=== PATIENT | male | born 1955 | race Caucasian/White ===

== ENCOUNTER 2016-03-15 03:09 | Inpatient (IN) ==
[2016-03-15] MEDS ORDERED: HYDROmorphone 2 MG/1 ML VIAL IV STA (05:30)
[2016-03-15] MEDS ORDERED: ONDANSETRON ODT 4 MG TABLET PO STA (05:31)
[2016-03-15] MEDS ORDERED: HYDROmorphone 2 MG/1 ML VIAL ONE (05:36)
[2016-03-15] MEDS ORDERED: ONDANSETRON ODT 4 MG TABLET PO ONE (05:36)
--- NOTE | 2016-03-15 05:46 | Emergency Department Note ---
IDomo Gwan, am scribing for, and in the presence of, Angel Aragon 05:07. IMargo Chad, personally performed the services described in this documentation, ascribed by Sarabjit Oliveros in my presence, and it is both accurate and complete [phone] . Arrival - Arrival Chief Complaint: Abdominal / Flank Pain Stated Complaint: N/V/D ED Nursing Triage Note: C/C transfer from [facility] ER for Colitis, N/V/D, inguinal hernia with bladder protruding through wall of hernia site. Pt was given Phenergan 50mg, Cipro 400mg, Decadron 10mg. Mode of Arrival: Stretcher Limitations: No Limitations Source: Patient, Old Records Reviewed, RN Notes Reviewed Time Seen by Provider: 03/15/16 03:39 - History of Present Illness HPI Narrative: Pt is a 60 y/o male, transferred from [facility] ER with a hx of hernia and mycoplasma , who presents to the ED who presents to the ED for further evaluation of Colitis, N/V/D and inguinal hernia protruding through wall of hernia site. Upon arrival, pt was given Phenergan 50 mg, Cipro 400mg and Decadron 10mg. His associated sxs have been V/D and night sweats. Patient stated that 03/09/2015 he called his PCP in [place] and informed him of his sxs, on 03/11/2015 he had an onset of diarrhea, today he reported to ED in [place] due to sxs worsening and he received a CT scan w/contrast and an x-ray. He was then prompted to report to ED. No other problems/complaints reported in ED. Onset (ago): week(s) Consistency: constant Severity: moderate Allergies/Adverse Reactions: Allergies Allergy/AdvReac Type Severity Reaction Status Date / Time No Known Allergies Allergy Unverified 03/15/16 03:27 Home Medications: Home Medications Medication Instructions Recorded Confirmed Type Atorvastatin [Lipitor] 20 mg PO DAILY 03/15/16 03/15/16 History HydrOXYzine PAMOATE CAP [Vistaril 25 mg PO DAILY 03/15/16 03/15/16 History Cap] PARoxetine [Paxil] 20 mg PO DAILY 03/15/16 03/15/16 History Review of System - Review of System 12 point system: reviewed and no additional remarkable complaints except as stated - Review of System Constitutional: Present: as per HPI, night sweats Gastrointestinal: Present: as per HPI, abdominal pain, nausea, vomiting, diarrhea Medical,Surgical,& Family Hx - Medical History Psychological: History of: Anxiety Disorders Endocrine: History of: Dyslipidemia - Social History Smoking Status: Never smoker Frequency of Alcohol Use: None Type of Drug Use: None Exam Vital Signs: Vital Signs Temperature 97.1 F L 03/15/16 03:09 Pulse Rate 74 03/15/16 03:09 Respiratory Rate 16 03/15/16 03:09 Blood Pressure 136/80 03/15/16 03:09 O2 Sat by Pulse Oximetry 94 L 03/15/16 03:09 - General General appearance: alert, in no apparent distress - Head Head exam: Present: atraumatic, normocephalic - Eye Eye exam: Present: normal appearance, PERRL, EOMI - ENT ENT exam: Present: normal oropharynx, mucous membranes moist, TM's normal bilaterally, normal external ear exam - Neck Neck exam: Present: full ROM. Absent: trachea midline, tenderness, meningismus , lymphadenopathy, thyromegaly - Chest Chest inspection: Present: symmetric chest wall rise. Absent: tenderness - Respiratory Respiratory exam: Present: normal lung sounds bilaterally. Absent: respiratory distress - Cardiovascular Cardiovascular exam: Present: regular rate, normal rhythm, normal heart sounds. Absent: murmur, rubs, gallop - Abdominal Exam Abdominal exam: Present: tenderness (mild right side ) - exam: Present: other (L inguinal hernia) - Extremities Exam Extremities exam: Present: full ROM. Absent: tenderness, pedal edema, calf tenderness - Back Exam Back exam: Present: full ROM. Absent: tenderness - Neurological Exam Neurological exam: Present: alert, oriented X3, CN II-XII intact. Absent: motor sensory deficit - Psychiatric Psychiatric exam: Present: normal affect, normal mood - Skin Skin exam: Present: warm, dry, intact, normal color Disposition Clinical Impression: Abdominal pain, Inguinal hernia Case discussed with: patient Disposition: Still a Patient Condition: Stable Instructions: Colitis (ED) Additional Instructions: discussed w dr ingram will admit to hospitalist service
[2016-03-15] MEDS ORDERED: ACETAMINOPHEN 325 MG TABLET PO PRN (06:13)
[2016-03-15] MEDS ORDERED: MORPHINE 2 MG/1 ML SYRINGE IV PRN (06:13)
[2016-03-15] MEDS ORDERED: ONDANSETRON 4 MG/2 ML VIAL IV PRN (06:13)
--- NOTE | 2016-03-15 06:18 | Hospitalist History & Physical ---
Assessment and Plan (1) Acute colitis Status: Acute Current Visit: Yes (2) Upper respiratory infection Status: Acute Current Visit: Yes (3) Diarrhea Status: Acute Current Visit: Yes (4) Left inguinal hernia Status: Acute Current Visit: Yes (5) Umbilical hernia Status: Acute Assessment and plan: Plan: 03/15: We'll admit for IV antibiotics, check blood cultures. We'll check stool for C. difficile as well given his recent antibiotic use followed by abdominal pain, watery diarrhea, and colitis on CT. We'll consult surgery for his inguinal hernia which has been bothering him and at some point he was supposed to see a surgeon. Otherwise supportive care for pain and nausea. Current Visit: Yes History of Present Illness Chief complaint: abdominal pain History of present illness: Mr. Mariscal is a 60 year old male with dyslipidemia who was transferred from an outside hospital with abdominal pain and CT consistent with colitis. He reports having upper respiratory infection and sinus primary doctor about a week ago and was started on oral antibiotics. On Wednesday he developed severe abdominal pain and watery diarrhea, of which she's had multiple episodes. He's had subjective fever and drenching sweats. His abdominal pain is mostly on the left side, radiates somewhat across the abdomen. He's had nausea and vomiting. He rates his pain 6 out of 10 at worst, relieved with pain medication. He also has an inguinal left hernia as well as an umbilical hernia. CT of the abdomen showed diffuse colitis. Home Medications Medication Instructions Recorded Confirmed Type Atorvastatin [Lipitor] 20 mg PO DAILY 03/15/16 03/15/16 History HydrOXYzine PAMOATE CAP [Vistaril 25 mg PO DAILY 03/15/16 03/15/16 History Cap] PARoxetine [Paxil] 20 mg PO DAILY 03/15/16 03/15/16 History Allergies Allergy/AdvReac Type Severity Reaction Status Date / Time No Known Allergies Allergy Unverified 03/15/16 03:27 Medical,Surgical,& Family Hx - Medical History Cardio: No history of: Hypertension Psychological: History of: Anxiety Disorders Endocrine: History of: Dyslipidemia No history of: Diabetes Mellitus (NIDDM) - Surgical History Abdominal Surgeries: Surgical HX of: Appendectomy - Family History Family History: noncontributory - Social History Smoking Status: Never smoker Frequency of Alcohol Use: None Type of Drug Use: None Marital Status: Unknown Functional capacity: independent ambulation Review of systems: A 12 point review of systems is negative except as specified in the HPI Exam - Constitutional Exam: EXAM: CONSTITUTIONAL: non toxic, NAD HEENT: NC, AT, OP benign, KARMA, EOMI CV: RRR no m/g/r RESP: clear B/L, no w/r/r GI: abd soft, left-sided abdominal tenderness, no rebound, + bowel sounds; reducible umbilical and left inguinal hernia INTEGUMENTARY: no lesions or rash EXTREMITIES: no c/c/e NEURO: no focal deficits PSYCH: unremarkable, A/O x3 Results - Labs Lab Results: I have reviewed the past 24 hour labs (outside labs reviewed) - Diagnostic Findings Procedure: CT Abdomen and Pelvis: image reviewed by me, report reviewed by me
[2016-03-15] MEDS ORDERED: CIPROFLOXACIN INJ 400 MG in PREMIX 1 EACH IV SCH (06:30)
[2016-03-15 07:20] LABS: Basophils # 0.1 10*3/uL (0.0-0.2); Basophils % 0.2 % (0.0-0.8); Hematocrit 51.1 VOL% (42.0-52.0); Hemoglobin 16.8 GM/DL (14.0-18.0); Immature Granulocytes Absolute 0.24 #; Lymphocytes # 2.4 10*3/uL (1.4-4.0); Lymphocytes % 9.5 % (21.2-54.2); Mean Corpuscular HGB Conc 32.9 GM/DL (32-36); Mean Corpuscular Hemoglobin 29 PG (27-34); Mean Corpuscular Volume 88.1 FL (87-102); Mean Platelet Volume 11.8 FL (9.6-12.0); Monocytes # 1.2 10*3/uL (0.11-0.8); Monocytes % 4.6 % (1.7-12.7); Neutrophils # 21.2 10*3/uL (1.4-7.4); Neutrophils % 84.7 % (38.7-73.9); Platelet Count 298 10*3/uL (130-400); Red Cell Distribution Width 12.9 % (9.3-17.3)
[2016-03-15 08:02] LABS: Bilirubin,Total 0.8 MG/DL (0.2-1.0); Calcium 8.6 MG/DL (8.5-10.1); Osmolality,Calculated 285.3 MOS/KG (273-304); Potassium 4.7 MMOL/L (3.5-5.1)
--- NOTE | 2016-03-15 08:13 | XRay Report ---
Exam: XR chest 1V portable Date: 03/15/2016 5:30 AM Indication: Cough Comparison: None Technical:AP semierect portable Findings: Cardiomegaly with tiny low-volume left effusion bibasal atelectatic change. Oxygen tubing is present. Mediastinum is unremarkable. Impression: 1. Cardiomegaly with tiny left base effusion atelectatic change PROCEDURE INTERPRETED AT [facility] DEPARTMENT OF RADIOLOGY Final Report Signed by: Dr. Mathew Zaragoza
[2016-03-15] MEDS: SODIUM CHLORIDE 0.9% 1,000 ML IV SCH ×2 (08:25→18:44)
[2016-03-15] MEDS: ATORVASTATIN 20 MG TABLET PO SCH (08:31)
[2016-03-15] MEDS: PANTOPRAZOLE 40 MG TABLET PO SCH (08:31)
[2016-03-15] MEDS: PARoxetine 20 MG TABLET PO SCH (08:31)
[2016-03-15] MEDS ORDERED: metroNIDAZOLE INJ 500 MG in PREMIX 1 EACH IV SCH (09:00)
[2016-03-15] MEDS: ENOXAPARIN 40 MG/0.4 ML SYRINGE SUBCUT SCH (09:45)
[2016-03-15 10:09] LABS: Band Neutrophils 2 % (0-10); Lymphocytes 10 % (20-55); Segmented Neutrophils 83 % (50-85); Total Cells Counted 100
[2016-03-15 10:10] LABS: Hypochromasia 1+; Platelet Estimate Adequate
--- NOTE | 2016-03-15 11:06 | Hospitalist Progress Note ---
Assessment and Plan (1) Acute colitis Status: Acute Assessment and plan: Stool for C. difficile 3. Stop Cipro and change to po flagyl, GI consulted Current Visit: Yes (2) Enlarged liver Status: Acute Assessment and plan: us of abdomen Current Visit: Yes (3) Left inguinal hernia Status: Acute Assessment and plan: Dr Archer consulted Current Visit: Yes Hospitalist: Subjective Interval history: Patient has already been seen by my partner but I have also seen him. My partner was concerned that he may be having C. difficile as he started having diarrhea after having a course of antibiotics. However when I saw him today he did the diarrhea had slowed up which C. difficile does not usually do. We will still check him for C. difficile but we will continue the IV antibiotics for colitis until seen by GI. Exam - Constitutional Vitals: Period Temp Pulse Resp BP Sys/Stewart Pulse Ox Last 24 Hr 98.5 F 85 17-18 137-139/91-93 90-93 Exam: Heart Rate-[RRR] Lungs-[CTAB] GI-[+bs soft, enlarged firm liver] Ext-[no edema] neuro motor 5/5, alert and oriented times 3 psych normal mood and affect general no acute distress Results - Labs CBC & BMP: 03/15/16 07:11 03/15/16 07:11 Lab Results: I have reviewed the past 24 hour labs - Diagnostic Findings Procedure: Chest x-ray: report reviewed by me (left effusion ) Specialty Discharge - Follow Up or Referrals
--- NOTE | 2016-03-15 11:12 | General Surgery Consult Note ---
History of Present Illness Chief complaint: consult for hernias History of present illness: Mr. Mariscal is a 60 year old male who was transferred from an outside facility with a diagnosis of colitis. His CT scan showed bilateral inguinal and umbilical hernias and I was consult did by Dr. Aragon in the emergency room. Patient has been admitted to the hospitalist service with a diagnosis of colitis. Possible C. difficile colitis. He says he's had hernias for quite some time. He says this time he would like to have them fixed. The hernias are not giving him any pain. He specifically denies pain in the groin and scrotum as well as the umbilicus. His pain is along the left abdomen and suprapubic area. He's recently been treated for upper respiratory symptoms with antibiotics. He began having diarrhea a few days ago. Apparently this has improved since admission. He says he feels much better today than he did yesterday. He does not appear toxic. I am unable to insert the assessment and plan in the appropriate tab and I will be placed here Impression: #1 pancolitis #2 asymptomatic umbilical and bilateral inguinal hernias Plan: Patient is on antibiotics and appears to have improved since admission. Hernias are asymptomatic at this time. I have reviewed the CT scan images and the outside report. No plans for repair of any hernia at this time due to his current infection. We can discuss this once the infection has resolved as an outpatient. We'll continue current antibiotics. GI has been consulted. Will follow. Home Medications Medication Instructions Recorded Confirmed Type Atorvastatin [Lipitor] 20 mg PO DAILY 03/15/16 03/15/16 History HydrOXYzine PAMOATE CAP [Vistaril 25 mg PO DAILY 03/15/16 03/15/16 History Cap] PARoxetine [Paxil] 20 mg PO DAILY 03/15/16 03/15/16 History Allergies Allergy/AdvReac Type Severity Reaction Status Date / Time No Known Allergies Allergy Unverified 03/15/16 03:27 Medical,Surgical,& Family Hx - Medical History Cardio: No history of: Hypertension Psychological: History of: Anxiety Disorders Endocrine: History of: Dyslipidemia No history of: Diabetes Mellitus (NIDDM) - Surgical History HEENT Surgeries: Surgical HX of: Tonsilectomy & Adenoidectomy (in 80s) Abdominal Surgeries: Surgical HX of: Appendectomy - Social History Smoking Status: Never smoker Frequency of Alcohol Use: None Type of Drug Use: None 12 point system: reviewed and no additional remarkable complaints except as stated Exam - Constitutional Vitals: Period Temp Pulse Resp BP Sys/Stewart Pulse Ox Last 24 Hr 98.5 F 85 17-18 137-139/91-93 90-93 General appearance: no acute distress - Head Head exam: Present: normocephalic - ENT Mouth exam: Present: normal external inspection - Neck Neck exam: Present: normal inspection - Respiratory Respiratory exam: Present: clear to auscultation bilaterally - Cardiovascular Cardiovascular exam: Present: RRR - GI/Abdominal GI/Abdominal exam: Present: soft (tender to palpation in the suprapubic and left lower quadrants. Umbilical hernia is easily reducible. He has bilateral inguinal hernias and the one on the left is larger than the right. The right one is reducible. The left one is partially reducible. He has no pain with manipulation of the hernias.) - Neurological Exam Neurological exam: Present: alert, oriented X3 Speech: Present: normal - Skin Skin exam: Present: normal color Results - Labs CBC & BMP: 03/15/16 07:11 03/15/16 07:11 Lab Results: I have reviewed the past 24 hour labs Specialty Discharge - Follow Up or Referrals
--- NOTE | 2016-03-15 11:58 | Ultrasound Report ---
Exam: US liver Date:03/15/2016 10:57 AM Indication: Enlarged firm liver hepatomegaly Comparison: CT scan [facility] 03/14/2016 Findings: Liver: Liver measures approximately 14.4 cm with right hepatic lobe with some mild Fastener Technologist margins. No focal masses are present. Hepatic and portal veins are patent with Gallbladder: Normal size shape configuration without stones. CBD: 5 mm Pancreas: Poorly visualized Kidneys Right kidney: 10.0 x 4.4 x 4.6 cm. There is no hydronephrosis perinephric fluid collection focal mass present. No obvious evidence of ascites present. Impression: 1. Mild enlargement right hepatic lobe with slight nodularity of the liver without focal mass Ultrasound images were stored and captured PROCEDURE INTERPRETED AT [facility] DEPARTMENT OF RADIOLOGY Final Report Signed by: Dr. Mathew Zaragoza
[2016-03-15] MEDS ORDERED: metroNIDAZOLE 500 MG TABLET PO SCH (15:00)
--- NOTE | 2016-03-15 17:41 | Gastrointestinal Consult Note ---
Assessment and Plan (1) C. difficile colitis Status: Acute Assessment and plan: Patient has a pancolitis, exposure to antibiotics, white blood cell count 25,000 , and a positive C. difficile by toxin check. Seems pretty classic for C. difficile colitis confirmed by the fact that he is doing much better on Flagyl this point. We need to bear in mind that he is 20% chance of recurrence of C. difficile, the next step would be to put him on a tapering dose i.e., Flagyl 3 times a day for week, twice a day for week, once a day per week and then once every other day for a week. If the patient fails Flagyl may consider using vancomycin for Dificid as alternatives. Continue Flagyl for at least 7-10 days. If his white count is improving tomorrow he might be also be discharged to home. Current Visit: Yes (2) Hepatomegaly Status: Acute Assessment and plan: Patient denies drinking significant amounts of alcohol. 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 His liver function tests are almost completely normal. I don't know if I would workup this slightly enlarged liver further. Current Visit: Yes (3) Referred left lower quadrant abdominal pain Status: Acute Assessment and plan: Pain is already improving, this will probably take over week or 2 to completely regress. Await the rest of the patient's stool studies to make sure there is no other pathogens noted. With use of Flagyl only at this point. Again the patient seems to be getting better on this medication. I'm going to advance him to a low-lactose diet tomorrow to see how he does with this. Current Visit: Yes History of Present Illness Chief complaint: C. difficile colitis History of present illness: Mr. Mariscal is a 60 year old male who has seen Dr. 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 He had been on antibiotics in the past for recent upper respiratory infection and has since been determined to be C. difficile positive. His white blood cell count is elevated at 25,000 and he states that he was having 10-15 bowel movements his first day 5 days ago but this is dropped down to about 2/day now that he has started on Flagyl. He has not noticed any bright red blood per rectum he does not have a history of colon cancer or polyps. The patient had had previous colonoscopy done by Dr. Chauhan on 09/04/13 for a history of blood in his stool, at that time he was noted to have some left-sided diverticulosis and internal hemorrhoids. His pain has dissipated to a large extent now, he feels no particular hunger unfortunately. Home Medications Medication Instructions Recorded Confirmed Type Atorvastatin [Lipitor] 20 mg PO DAILY 03/15/16 03/15/16 History HydrOXYzine PAMOATE CAP [Vistaril 25 mg PO DAILY 03/15/16 03/15/16 History Cap] PARoxetine [Paxil] 20 mg PO DAILY 03/15/16 03/15/16 History Allergies Allergy/AdvReac Type Severity Reaction Status Date / Time No Known Allergies Allergy Unverified 03/15/16 03:27 Medical,Surgical,& Family Hx - Medical History Cardio: No history of: Hypertension Psychological: History of: Anxiety Disorders Endocrine: History of: Dyslipidemia No history of: Diabetes Mellitus (NIDDM) - Surgical History HEENT Surgeries: Surgical HX of: Tonsilectomy & Adenoidectomy (in 80s) Abdominal Surgeries: Surgical HX of: Appendectomy - Social History Smoking Status: Never smoker Frequency of Alcohol Use: None Type of Drug Use: None Review of systems: Constitutional: Denies fever, chills, with history of recent nausea, and vomiting some 5 days ago Eyes: Denies dry eyes, and scleral icterus HENT: Denies headaches Cardiovascular: Denies acute chest pain and claudication Respiratory: Denies shortness of breath, wheezing, and difficulty breathing, denies cough Gastrointestinal: As noted in the HPI Genitourinary: Denies dysuria and hematuria Neurologic: Denies vision loss, and loss of sensation Musculoskeletal: Denies joint swelling, joint stiffness, and muscular weakness Psychiatric: Denies depression and cayetano symptoms Heme-Lymph: Denies easy bruising, lymph node enlargement or tenderness, night sweats, excessive bleeding Allergies-immunologic: Denies pruritus and rhinorrhea Exam - Constitutional Vitals: Period Temp Pulse Resp BP Sys/Stewart Pulse Ox Last 24 Hr 98.2 F-98.5 F 76-85 16-20 135-157/75-93 90-93 Exam: Constitutional: Well-developed, well-nourished, alert, and in no acute distress Head and face: Head: Normocephalic atraumatic Eyes: Conjunctiva without injection, no gross scleral icterus, pupils equal and round bilaterally Ears: Intact to conversation in both ears Nose: External appearance is normal, nares patent Mouth: Oral mucous membranes moist without erythema dentition noted to be without erosion Neck: Normal appearance, no masses or tenderness, trachea midline Thyroid: Gland midline and appropriate size for age Respiratory: Normal respiratory effort, clear to auscultation without wheezes, rhonchi or rales Cardiovascular: Regular rate and rhythm, normal S1, S2, the exam is without rubs, murmurs or gallops. Gastrointestinal: Tenderness to deep palpation in the left lower abdomen, normal active bowel sounds, tone normal without rigidity or guarding, no masses present, no hepatomegaly, no spleen tip felt. There is a periumbilical hernia noted here above the size of a half dollar, right inguinal hernia noted as well. No rectal exam obtained. Lymphatic: Neck without adenopathy, axilla without lymphadenopathy present Musculoskeletal: Right and left lower extremities without evidence of edema Skin and subcutaneous tissue: No rashes or ulcerations noted, normal skin turgor, digits and nails without clubbing/cyanosis/deformities. Neurologic: The patient is grossly oriented to person place and time, cranial nerves show tongue movements are normal with normal tongue extrusion midline, light touch sensation is intact. Psychiatric: No hallucinations or delusions are present, does not appear depressed Results - Labs CBC & BMP: 03/15/16 07:11 03/15/16 07:11 Specialty Discharge - Follow Up or Referrals
[2016-03-15] MEDS: VANCOMYCIN 50 MG/ML 60 ML/BOTTLE PO SCH ×2 (18:45→23:31)
[2016-03-15] MEDS: HydrOXYzine PAMOATE 25 MG CAPSULE PO SCH (20:04)
[2016-03-16] MEDS: SODIUM CHLORIDE 0.9% 1,000 ML IV SCH ×3 (02:33→18:30)
[2016-03-16] MEDS: VANCOMYCIN 50 MG/ML 60 ML/BOTTLE PO SCH ×4 (05:28→23:25)
[2016-03-16 06:09] LABS: Basophils % 0.2 % (0.0-0.8); Eosinophils # 0.1 10*3/uL (0.0-0.87); Eosinophils % 0.6 % (0.00-10.9); Hematocrit 46.7 VOL% (42.0-52.0); Hemoglobin 15.2 GM/DL (14.0-18.0); Immature Granulocytes % 0.8 %; Immature Granulocytes Absolute 0.18 #; Lymphocytes # 3.7 10*3/uL (1.4-4.0); Lymphocytes % 15.9 % (21.2-54.2); Mean Corpuscular HGB Conc 32.5 GM/DL (32-36); Mean Corpuscular Hemoglobin 28 PG (27-34); Mean Corpuscular Volume 86.6 FL (87-102); Monocytes # 1.9 10*3/uL (0.11-0.8); Monocytes % 8.1 % (1.7-12.7); Neutrophils # 17.2 10*3/uL (1.4-7.4); Neutrophils % 74.4 % (38.7-73.9); Platelet Count 301 10*3/uL (130-400); Red Blood Count 5.39 10*6/uL (3.8-5.5); Red Cell Distribution Width 13.2 % (9.3-17.3); White Blood Count 23.1 10*3/uL (4.5-13.71)
[2016-03-16 06:31] LABS: Band Neutrophils 4 % (0-10); Lymphocytes 13 % (20-55); Segmented Neutrophils 76 % (50-85); Total Cells Counted 100
[2016-03-16 06:32] LABS: Hypochromasia Slight
[2016-03-16 06:33] LABS: Microcytosis Slight; Platelet Estimate Normal
[2016-03-16 06:43] LABS: Albumin 2.6 G/DL (3.4-5.0); Bilirubin,Total 0.7 MG/DL (0.2-1.0); Calcium 8.3 MG/DL (8.5-10.1); Osmolality,Calculated 282.3 MOS/KG (273-304); Total Protein 5.8 G/DL (6.4-8.3)
[2016-03-16] MEDS: PANTOPRAZOLE 40 MG TABLET PO SCH (09:07)
[2016-03-16] MEDS: PARoxetine 20 MG TABLET PO SCH (09:07)
[2016-03-16] MEDS: ATORVASTATIN 20 MG TABLET PO SCH (09:07)
[2016-03-16] MEDS: ENOXAPARIN 40 MG/0.4 ML SYRINGE SUBCUT SCH (09:08)
--- NOTE | 2016-03-16 09:54 | Gastrointestinal Progress Note ---
Assessment and Plan (1) C. difficile colitis Status: Acute Assessment and plan: 03/16-Continued high diarrhea stool output, abd cramping. Afebrile. WBC trending down slightly at 23. Continue oral Vancomycin, consider adding Colestid. Plan and addendum to follow by Dr Chauhan. Current Visit: Yes Gastroenterology - PN: Subj Interval history: CC: C. diff Pt is seen asleep. Awakens easily to stimuli. States that he is feeling the same. He reports having continued large amount of stool with abdominal cramping. Denies any fever or chills. Denies any nausea or vomiting. He states he did see some blood streaks this morning in his stool which he hasnt had however he is going upwards of 10-15 times daily. Abdomen is soft, mild tenderness. WBC 23, down slightly. ROS: Denies SOB or chest pain Exam (Progress Note) - Constitutional Vitals: Period Temp Pulse Resp BP Sys/Stewart Pulse Ox Last 24 Hr 98.2 F-99.9 F 76-87 16-20 123-157/74-87 90-93 General appearance: normal weight, no acute distress - Head Head exam: Present: normal inspection, normocephalic - Eye Eye exam: Present: other (lids and conjunctiva unremarkable). Absent: scleral icterus - ENT ENT exam: Present: normal exam, normal oropharynx - Neck Neck exam: Present: normal inspection - Respiratory Respiratory exam: Present: clear to auscultation bilaterally. Absent: rales, rhonchi, wheezes - Cardiovascular Cardiovascular exam: Present: regular rate and rhythm. Absent: diastolic murmur , JVD, systolic murmur - GI/Abdominal GI/Abdominal exam: Present: normal bowel sounds, soft. Absent: ascites, distended, mass, organomegaly, tenderness - Extremities Exam Extremities exam: Present: normal inspection, full ROM - Back Exam Back exam: Present: normal inspection - Neurological Exam Neurological exam: Present: alert, oriented X3 - Psychiatric Psychiatric exam: Present: normal affect, normal mood - Skin Skin exam: Present: normal color, warm, dry Results - Labs CBC & BMP: 03/16/16 05:53 03/16/16 05:53 Lab Results: I have reviewed the past 24 hour labs Specialty Discharge - Follow Up or Referrals
--- NOTE | 2016-03-16 11:33 | General Surgery Progress Note ---
Assessment and Plan - Time spent with patient Time spent with patient: Less than 30 minutes (1) Inguinal hernia Status: Acute Assessment and plan: 61WM admitted w Cdiff colitis. pt feeling a little better today. dr vergara was consulted for asymptomatic bilateral inguinal hernias and umbilical hernias. these are not bothering pt today. will cont to follow. will have him see dr vergara in 1month in clinic for evaluation. discussed w dr vergara. Current Visit: Yes Exam - Constitutional Vitals: Period Temp Pulse Resp BP Sys/Stewart Pulse Ox Last 24 Hr 98.2 F-99.9 F 76-87 16-20 123-157/74-87 90-93 Results - Labs CBC & BMP: 03/16/16 05:53 03/16/16 05:53 Specialty Discharge - Follow Up or Referrals
--- NOTE | 2016-03-16 13:31 | Hospitalist Progress Note ---
Assessment and Plan (1) C. difficile colitis Status: Acute Assessment and plan: 1)C diff colitis- on flagyl. Continue IVF. 2)hernias- to see Dr Archer as outpatient Current Visit: Yes (2) Left inguinal hernia Status: Acute Current Visit: Yes (3) Umbilical hernia Status: Acute Current Visit: Yes (4) Referred left lower quadrant abdominal pain Status: Acute Current Visit: Yes Hospitalist: Subjective Interval history: Continues to have frequent diarrhea, but with IV fluids feels somewhat better. Able to drink water. Mild abd pain. Exam - Constitutional Vitals: Period Temp Pulse Resp BP Sys/Stewart Pulse Ox Last 24 Hr 97.9 F-99.9 F 76-87 16-20 114-135/74-86 90-93 General appearance: no acute distress, over weight - Head Head exam: Present: normocephalic, atraumatic - Eye Eye exam: Present: EOMI. Absent: scleral icterus - Respiratory Respiratory exam: Present: clear to auscultation bilaterally - Cardiovascular Cardiovascular exam: Present: regular rate and rhythm - GI/Abdominal GI/Abdominal exam: Present: hyperactive bowel sounds, tenderness (mild), soft - Extremities Exam Extremities exam: Absent: edema Results - Labs CBC & BMP: 03/16/16 05:53 03/16/16 05:53 Lab Results: I have reviewed the past 24 hour labs Specialty Discharge - Follow Up or Referrals
[2016-03-16] MEDS: HydrOXYzine PAMOATE 25 MG CAPSULE PO SCH (22:04)
[2016-03-17 05:26] LABS: Basophils # 0.1 10*3/uL (0.0-0.2); Basophils % 0.3 % (0.0-0.8); Eosinophils # 0.3 10*3/uL (0.0-0.87); Eosinophils % 1.2 % (0.00-10.9); Hemoglobin 14.4 GM/DL (14.0-18.0); Immature Granulocytes % 0.7 %; Immature Granulocytes Absolute 0.16 #; Lymphocytes # 4.6 10*3/uL (1.4-4.0); Lymphocytes % 20.9 % (21.2-54.2); Mean Corpuscular Hemoglobin 29 PG (27-34); Mean Corpuscular Volume 89.6 FL (87-102); Mean Platelet Volume 12.5 FL (9.6-12.0); Monocytes # 1.7 10*3/uL (0.11-0.8); Monocytes % 7.7 % (1.7-12.7); Neutrophils # 15.4 10*3/uL (1.4-7.4); Neutrophils % 69.2 % (38.7-73.9); Platelet Count 258 10*3/uL (130-400); Red Blood Count 5.02 10*6/uL (3.8-5.5); Red Cell Distribution Width 13.1 % (9.3-17.3); White Blood Count 22.2 10*3/uL (4.5-13.71)
[2016-03-17 05:45] LABS: Calcium 7.9 MG/DL (8.5-10.1); Potassium 3.8 MMOL/L (3.5-5.1)
[2016-03-17 06:06] LABS: Band Neutrophils 1 % (0-10); Eosinophils 1 % (0-10); Lymphocytes 15 % (20-55); Segmented Neutrophils 81 % (50-85); Total Cells Counted 100
[2016-03-17 06:07] LABS: Burr Cells Slight; Hypochromasia Slight; Platelet Estimate Adequate
[2016-03-17] MEDS: VANCOMYCIN 50 MG/ML 60 ML/BOTTLE PO SCH ×3 (06:08→18:36)
[2016-03-17] MEDS: SODIUM CHLORIDE 0.9% 1,000 ML IV SCH ×2 (06:08→20:46)
--- NOTE | 2016-03-17 10:26 | Gastrointestinal Progress Note ---
Assessment and Plan (1) C. difficile colitis Status: Acute Assessment and plan: 03/17-Less diarrhea, less abd pain. Appetite slowly improving. Continue current treatment. Plan and addendum to follow by Dr Chauhan . 03/16-Continued high diarrhea stool output, abd cramping. Afebrile. WBC trending down slightly at 23. Continue oral Vancomycin.. Plan and addendum to follow by Dr Chauhan. Current Visit: Yes Gastroenterology - PN: Subj Interval history: CC: C. Diff Pt is awake, alert, lying in bed. He states he is feeling better today. He is having less abdominal cramping and has only had 2-3 loose stools since last night. He is eating a little more as well at present. Denies any nausea or vomiting. He is afebrile. Abdomen is soft, nontender. WBC continue to trend down. ROS: Denies SOB or chest pain Exam (Progress Note) - Constitutional Vitals: Period Temp Pulse Resp BP Sys/Stewart Pulse Ox Last 24 Hr 97.9 F-100.3 F 75-82 18-20 102-136/59-79 92-95 - Other Additional findings: General appearance: normal weight, no acute distress - Head Head exam: Present: normal inspection, normocephalic - Eye Eye exam: Present: other (lids and conjunctiva unremarkable). Absent: scleral icterus - ENT ENT exam: Present: normal exam, normal oropharynx - Neck Neck exam: Present: normal inspection - Respiratory Respiratory exam: Present: clear to auscultation bilaterally. Absent: rales, rhonchi, wheezes - Cardiovascular Cardiovascular exam: Present: regular rate and rhythm. Absent: diastolic murmur , JVD, systolic murmur - GI/Abdominal GI/Abdominal exam: Present: normal bowel sounds, soft. Absent: ascites, distended, mass, organomegaly, tenderness - Extremities Exam Extremities exam: Present: normal inspection, full ROM - Back Exam Back exam: Present: normal inspection - Neurological Exam Neurological exam: Present: alert, oriented X3 - Psychiatric Psychiatric exam: Present: normal affect, normal mood - Skin Skin exam: Present: normal color, warm, dry Results - Labs CBC & BMP: 03/17/16 04:50 03/17/16 04:50 Lab Results: I have reviewed the past 24 hour labs Specialty Discharge - Follow Up or Referrals
[2016-03-17] MEDS: PARoxetine 20 MG TABLET PO SCH (10:27)
[2016-03-17] MEDS: ATORVASTATIN 20 MG TABLET PO SCH (10:27)
[2016-03-17] MEDS: PANTOPRAZOLE 40 MG TABLET PO SCH (10:27)
[2016-03-17] MEDS: ENOXAPARIN 40 MG/0.4 ML SYRINGE SUBCUT SCH (10:31)
--- NOTE | 2016-03-17 11:22 | Hospitalist Progress Note ---
Assessment and Plan (1) C. difficile colitis Status: Acute Assessment and plan: 1)C diff colitis- on flagyl and oral vanc. Continue IVF but decrease rate to 75/ hr. 2)hernias- to see Dr Archer as outpatient Current Visit: Yes (2) Left inguinal hernia Status: Acute Current Visit: Yes (3) Umbilical hernia Status: Acute Current Visit: Yes (4) Referred left lower quadrant abdominal pain Status: Acute Current Visit: Yes Hospitalist: Subjective Interval history: MR Mariscal is feeling better but still sick. Less diarrhea. Appetite is good. Still with abdominal pain. Exam - Constitutional Vitals: Period Temp Pulse Resp BP Sys/Stewart Pulse Ox Last 24 Hr 97.9 F-100.3 F 75-91 18-20 102-136/59-79 92-97 General appearance: no acute distress, over weight - Eye Eye exam: Present: EOMI. Absent: scleral icterus - Respiratory Respiratory exam: Present: clear to auscultation bilaterally - Cardiovascular Cardiovascular exam: Present: regular rate and rhythm - GI/Abdominal GI/Abdominal exam: Present: normal bowel sounds, tenderness, soft - Extremities Exam Extremities exam: Absent: edema Results - Labs CBC & BMP: 03/17/16 04:50 03/17/16 04:50 Specialty Discharge - Follow Up or Referrals
--- NOTE | 2016-03-17 12:27 | General Surgery Progress Note ---
Assessment and Plan - Time spent with patient Time spent with patient: Less than 30 minutes (1) Inguinal hernia Status: Acute Assessment and plan: 61WM admitted w Cdiff colitis. pt feeling a little better today. dr vergara was consulted for asymptomatic bilateral inguinal hernias and umbilical hernias. these are not bothering pt today. will cont to follow. will have him see dr vergara in 1month in clinic for evaluation. discussed w dr vergara. 03/17/16 pt still having diarrhea and LLQ abdominal pain. no complaints from hernias. fevers to 100.3 yesterday. wbc 22, abd soft, ttp llq, hernias stable and reducible. AP--cont to follow. follow up w dr vergara outpatient for repairs at a later time. dr vergara has seen and examined pt. Current Visit: Yes Exam - Constitutional Vitals: Period Temp Pulse Resp BP Sys/Stewart Pulse Ox Last 24 Hr 98.4 F-100.3 F 75-91 18-20 102-136/59-77 92-97 Results - Labs CBC & BMP: 03/17/16 04:50 03/17/16 04:50 Specialty Discharge - Follow Up or Referrals
[2016-03-17] MEDS: HydrOXYzine PAMOATE 25 MG CAPSULE PO SCH (20:45)
[2016-03-18] MEDS: SODIUM CHLORIDE 0.9% 1,000 ML IV SCH ×5 (00:15→09:34)
[2016-03-18] MEDS: VANCOMYCIN 50 MG/ML 60 ML/BOTTLE PO SCH ×3 (00:53→12:07)
[2016-03-18] MEDS: PARoxetine 20 MG TABLET PO SCH (09:32)
[2016-03-18] MEDS: PANTOPRAZOLE 40 MG TABLET PO SCH (09:32)
[2016-03-18] MEDS: ENOXAPARIN 40 MG/0.4 ML SYRINGE SUBCUT SCH (09:32)
[2016-03-18] MEDS: ATORVASTATIN 20 MG TABLET PO SCH (09:32)
--- NOTE | 2016-03-18 11:23 | Discharge Summary ---
<Elaine Willard - Last Filed: 03/18/16 12:41> Hospital Course - Hospital Course Hospital Course: Mr. Mariscal was admitted on 03/15 with acute colitis, URI, diarrhea, left inguinal and umbilical hernia. Stool cx's were obtained and were positive for c diff, but enteric pathogens grew. Urine negative and blood cx's negative. Cipro was stopped, and changed to PO Flagyl for treatment of his c diff. He was found to have an enlarged liver and u/s of abdomen was performed. Ultrasound showed "mild enlargement right hepatic lobe with slight nodularity of the liver without focal mass". General Surgery was consulted and saw on 03/15 for his hernias. His hernias are asymptomatic at this time. Surgery felt that he did not need repair at this time due to his current infection and can follow up as an outpatient. Dr. Joe with GI was also consulted for c diff and hepatomegaly. Mr. Mariscal denies any significant alcohol use, but does have some exposure to toxins with his job. LFT's are almost normal. He felt that further work up was not indicated at this time. He continued to improve on PO antibiotics, and is now ready for discharge. He will be discharged home on appropriate medications and follow up with Dr. Archer in 1 month. - Time spent with patient Time with patient DS: Greater than 30 minutes (due to plan, doc and med rec.) Diagnosis - Discharge Diagnosis (1) C. difficile colitis Status: Acute (2) Hepatomegaly Status: Acute (3) Left inguinal hernia Status: Acute (4) Umbilical hernia Status: Acute (5) Upper respiratory infection Status: Acute Specialty Discharge - Follow Up or Referrals Follow up with: Concetta Mccormack [Other] - 1 Week (1 week) Chadd Archer MD [Physician] - 04/21/16 9:00 am (hernias ) Discharge Plan - Discharge Data Disposition: Disch To Home/Self Care - Discharge Medications New HYDROcodone/ACETAMIN 7.5-325 [Ina 7.5-325] 1 tablet PO Q4H PRN #10 tablet PRN Reason: Pain Moderate (4-7) Vancomycin Liquid 125 mg PO Q6HR #60 bottle Continue Atorvastatin [Lipitor] 20 mg PO DAILY PARoxetine [Paxil] 20 mg PO DAILY HydrOXYzine PAMOATE CAP [Vistaril Cap] 25 mg PO DAILY - Follow Up or Referral Follow Up: Concetta Mccormack [Other] - 1 Week (1 week) Chadd Archer MD [Physician] - 04/21/16 9:00 am (hernias ) - Forms/Instructions Instructions: Clostridium Difficile Infection (DC), Colitis (ED) Exam - Constitutional Vitals: Period Temp Pulse Resp BP Sys/Stewart Pulse Ox Last 24 Hr 98.0 F-98.5 F 69-78 20-20 103-118/59-68 93-95 Discharge Results Procedures and tests throughout hospitalization: Pending Orders 03/15/16 07:11 Blood Culture Stat Labs on day of discharge: Preliminary micro results at discharge 03/15/16 07:11 Blood Culture - Preliminary Blood No growth at 3 days 03/15/16 07:11 Blood Culture - Preliminary Blood No growth at 3 days DS: Provider Date of admission: 03/15/16 05:46 Primary care physician: . No PCP Attending physician on admission: Jm Hernández DO Consults: 03/15/16 06:13 Consult to Physician [CONS] Routine Comment: colitis, bladder extending into inguinal hernia Consulting Provider: Chadd Archer Consult to Specialist Group: Surgery When should Consulting Provider be notified: Now Person Notified: Gianni Date Notified: 03/15/16 Time Notified: 07:57 03/15/16 06:17 Consult to Physician [CONS] Routine Comment: known to you, c. diff colitis Consulting Provider: Mathew Chauhan Consult to Specialist Group: Gastroenterology When should Consulting Provider be notified: Now Person Notified: Tatyana Date Notified: 03/15/16 Time Notified: 07:30 03/15/16 09:16 Consult to Pharmacy [CONS] Routine Reason for Pharmacy Consult: Adjust Meds Renal Funct Discharging clinician: Elaine Willard NP Expected date of discharge: 03/18/16 <Gloria Baez - Last Filed: 03/18/16 14:34> Hospital Course - Hospital Course Hospital Course: I have seen and examined MR Mariscal and agree with note below. He will see his PCP in a a week or so to monitor his recovery from C diff. He has been given hygeine and infection control instructions by the nurse. He understands that he should take his oral vanc until it is gone even if his symptoms resolve before that. Diagnosis - Discharge Diagnosis (1) C. difficile colitis Status: Acute (2) Left inguinal hernia Status: Acute (3) Umbilical hernia Status: Acute (4) Referred left lower quadrant abdominal pain Status: Acute Discharge Plan - Discharge Data Condition at Discharge: Stable Discharge Diet: heart healthy, regular diet Activity: resume usual activities as tolerated Exam - Constitutional General appearance: no acute distress, over weight - Head Head exam: Present: normocephalic, atraumatic - Eye Eye exam: Present: EOMI. Absent: scleral icterus - Respiratory Respiratory exam: Present: clear to auscultation bilaterally - Cardiovascular Cardiovascular exam: Present: regular rate and rhythm - GI/Abdominal GI/Abdominal exam: Present: normal bowel sounds, tenderness (mild tenderness no rebound or guarding), soft - Extremities Exam Extremities exam: Absent: edema
[2016-03-18 11:54] VITALS: BP 112/59
== END 2016-03-18 14:15 | disposition home or self-care (01) | DRG 373 ==
LOC: EDUNIT# → EDBD → N.ED 03:09 → SUATTDRO 05:46 → N.EDINP 05:46 → N.2E 06:13
PROVIDERS: ADMIT Internal Medicine; ATTEND Internal Medicine